=== PATIENT | female | born 1965 | race Caucasian/White ===

== ENCOUNTER → 2023-08-24 15:53 | Outpatient (REF) | payer OTHER, SELFPAY | LOC: HWWDC 15:53 | PROVIDERS: ATTENDING PHYSICIAN Family Medicine | DX: Z12.31 Encounter for screening mammogram for malignant neoplasm of breast (principal) | CPT/HCPCS: 77063; 77067 ==

== ENCOUNTER → 2025-02-18 13:36 | Outpatient (REF) | payer OTHER, SELFPAY | LOC: HWWDC 13:36 | PROVIDERS: ATTENDING PHYSICIAN Family Medicine | DX: Z12.31 Encounter for screening mammogram for malignant neoplasm of breast (principal) | CPT/HCPCS: 77063; 77067 ==

== ENCOUNTER → 2025-03-26 14:48 | Outpatient (REF) | payer OTHER, SELFPAY | LOC: DHSLP 14:48 | PROVIDERS: ATTENDING PHYSICIAN Family Medicine | DX: G47.19 Other hypersomnia (principal); R06.83 Snoring | CPT/HCPCS: 95800 ==